=== PATIENT | male | born 2000 | race American Indian/Alaskan Native ===

== ENCOUNTER 2024-04-30 16:07 | Emergency (ER) | payer SELFPAY ==
--- NOTE | 2024-04-30 17:33 | RAD REPORT ---
EXAM:Extremity Venous Uni Ltd HISTORY: Leg pain TECHNIQUE: Sonographic evaluation right lower extremity performed.Grayscale, color and spectral nicolás sis performed on all vessels COMPARISON: None. FINDINGS: Right common femoral, superficial femoral, greater saphenous, popliteal and posterior tibial veins ar e compressible and demonstrate augmentation. Doppler demonstrates good flow. IMPRESSION: No evidence of deep venous thrombosis involving the right lower extremity.
[2024-04-30 17:38] LABS: Absolute Basophils 0.1 K/uL (0-0.5); Absolute Eosinophils 0.3 K/uL (0-0.5); Absolute Lymphocytes (CBC) 2.7 K/uL (0.7-4.9); Absolute Monocytes 1.1 K/uL (0.1-1.3); Absolute Neutrophil 7.9 K/uL (1.8-8.0); Basophils % 0.7 % (0-1.3); Eosinophils % 2.5 % (0-4.4); Hematocrit 37.2 % (39.6-49.0); Hemoglobin 12.3 g/dL (13.6-17.9); Lymphocytes % 22.1 % (15.3-44.8); MCH 29.4 pg (27.0-35.0); MCHC 32.9 g/dL (32.0-36.0); MCV 89.4 fL (80-100); MPV 7.9 fL (7.6-11.3); Monocytes % 9.4 % (3.3-12.3); Neutrophils % 65.3 % (41.7-73.7); Platelets 382 thou/uL (152-406); RBC Red Blood Cell Count 4.16 M/uL (4.33-5.43); Red Cell Distribution Width 14.2 % (12.1-15.2)
[2024-04-30 17:42] LABS: PT Prothrombin Time 12.8 SECONDS (9.4-12.5); PTT, Activated Partial Thromb 37.2 SECONDS (24.3-36.9); Protime INR 1.15
[2024-04-30 17:55] LABS: Albumin/Globulin Ratio 0.6 (1.1-1.8); Anion Gap 9.6 mEq/L (5.0-15.0); Bilirubin Total 0.5 mg/dL (0.2-1.0); Globulin 5.3 g/dL (2.3-3.5); Potassium 3.6 mEq/L (3.5-5.1); Protein, Total 8.3 g/dL (6.4-8.2)
[2024-04-30] MEDS ORDERED: NA CHLORIDE 0.9% 1,000 ML ONE (18:16)
[2024-04-30] MEDS ORDERED: FUROSEMIDE 40 MG/4 ML VIAL ONE (18:16)
[2024-04-30] MEDS ORDERED: CLINDAMYCIN 900MG/D5W 900 MG/50 ML IVPB IV ONE (18:16)
--- NOTE | 2024-04-30 18:48 | EDPHYS ---
Physician Documentation [facility] Name: Korey Borrego Age: 23 yrs Sex: Male : 2000 Arrival Date: 04/30/2024 Time: 16:07 Bed 13 Private MD: ED Physician Ameya Holley HPI: 04/30 19:31 This 23 yrs old Male presents to ER via Ambulatory with complaints of sb4 leg swelling. 19:31 The patient presents with cellulitis of the right desir. Description: erythematous, sb4 swollen, warm. Possible cause(s): spider bite. Associated signs and symptoms: Pertinent negatives: discharge, drainage, fever. thinks he was bitten by a spider 3 weeks ago. on the right lower leg. desir has slowly become more red and swollen. was prescribed antibiotics that he just started this morning. his boss sent him here for further eval. Historical: - Allergies: 16:44 No Known Allergies; ll1 - PMHx: 16:44 None; ll1 - PSHx: 16:44 None; ll1 - Immunization history:: Adult Immunizations up to date. - Infectious Disease History:: Denies. - Social history:: Smoking status: Patient denies any tobacco usage or history of. ROS: 19:31 Constitutional: Negative for fever, chills, and weight loss, sb4 19:31 Skin: Positive for cellulitis, erythema, swelling, of the right desir, 19:31 All other systems are negative, Exam: 19:33 Head/Face: Normocephalic, atraumatic. Eyes: Extra-ocular motions intact. Periorbital sb4 areas with no swelling, redness, or edema. ENT: Mucous membranes moist. Cardiovascular: Regular rate and rhythm with a normal S1 and S2. Respiratory: No increased work of breathing, no retractions or nasal flaring. Abdomen/GI: Soft, non-tender, no distension. 19:33 Constitutional: The patient appears in no acute distress, alert, awake, obese, 19:33 Cardiovascular: Edema: 3+ edema to level of right midcalf and right ankle, 19:33 Skin: cellulitis, that is moderate, on the right desir, Vital Signs: 16:41 BP 151 / 92; Pulse 100; Resp 16; Temp 97.5; Pulse Ox 100% ; Weight 158.3 kg; Height 5 ll1 ft. 9 in. ; Pain 10/10; 17:45 BP 125 / 92; Pulse 92; Resp 16; Pulse Ox 98% ; cm10 18:00 BP 125 / 62; Pulse 90; Resp 19; Pulse Ox 99% ; cm10 16:41 Body Mass Index 51.54 (158.30 kg, 175.26 cm) ll1 16:41 Pain Scale: Adult ll1 MDM: 17:12 Medical Screening Exam initiated sb4 19:33 Data reviewed: vital signs, nurses notes, lab test result(s), radiologic studies, and sb4 as a result, I will discharge patient. Counseling: I had a detailed discussion with the patient and/or guardian regarding the historical points, exam findings, and any diagnostic results supporting the discharge/admit diagnosis, lab results, radiology results, the need for outpatient follow up, for definitive care, to return to the emergency department if symptoms worsen or persist or if there are any questions or concerns that arise at home. 04/30 16:49 Order name: Blood Culture Adult (2) sb4 04/30 16:49 Order name: CBC with Diff; Complete Time: 17:46 sb4 04/30 16:49 Order name: CMP; Complete Time: 18:01 sb4 04/30 16:49 Order name: Lactate w/ 2H reflex if indic.; Complete Time: 18:01 sb4 04/30 16:49 Order name: Protime (+inr); Complete Time: 17:42 sb4 04/30 16:49 Order name: Ptt, Activated; Complete Time: 17:42 sb4 04/30 16:49 Order name: Extremity Venous Uni Ltd US; Complete Time: 17:33 sb4 04/30 16:49 Order name: Accucheck; Complete Time: 17:39 sb4 04/30 16:49 Order name: Cardiac monitoring; Complete Time: 17:39 sb4 04/30 16:49 Order name: IV Saline Lock - Large Bore; Complete Time: 17:31 sb4 04/30 16:49 Order name: Labs collected and sent; Complete Time: 17:31 sb4 04/30 16:49 Order name: O2 Per Protocol; Complete Time: 17:39 sb4 04/30 16:49 Order name: O2 Sat Monitoring; Complete Time: 17:39 sb4 04/30 16:49 Order name: Vital Signs; Complete Time: 17:39 sb4 Administered Medications: 18:25 Drug: NS 0.9% IV 1000 ml IV at 1 bolus Per protocol; to be given as a bolus over 60 cm10 minutes Route: IV; Rate: 1 bolus; Site: left antecubital; 19:04 Follow up: Response: No adverse reaction; IV Status: Completed infusion; IV Intake: cm10 1000ml 18:25 Drug: Furosemide IVP 40 mg IVP once; give over 2 minutes Route: IVP; Site: left cm10 antecubital; 19:04 Follow up: Response: No adverse reaction cm10 18:25 Drug: Clindamycin IVPB 900 mg IVPB once over 30 mins; (mix in 50 mL) Route: IVPB; cm10 Infused Over: 30 mins; Site: left antecubital; 19:04 Follow up: Response: No adverse reaction; IV Status: Completed infusion; IV Intake: [id number] Disposition Summary: 04/30/24 18:48 Discharge Ordered Notes: Location: Home sb4 Problem: an ongoing problem sb4 Symptoms: have improved sb4 Condition: Stable sb4 Diagnosis - Cellulitis of right lower limb sb4 Followup: sb4 - With: Emergency Department - When: As needed - Reason: Fever > 102 F, Worsening of condition Discharge Instructions: - Discharge Summary Sheet sb4 - Cellulitis, Adult sb4 Forms: - Antibiotic Education sb4 - Patient Portal Instructions sb4 - Leadership Thank You Letter sb4 Prescriptions: - Cephalexin 500 mg Oral Capsule - take 1 capsule ORAL route every 12 hours for 10 days; 20 capsule; Refills: 0, sb4 Product Selection Permitted - Bactrim DS 800-160 mg Oral Tablet - take 1 tablet ORAL route every 12 hours for 10 days; 20 tablet; Refills: 0, sb4 Product Selection Permitted Signatures: Dispatcher [employer] Melissa Turner RN RN ll1 Naomi Basilio PA-C PASean sb4 Ronel Darden RN RN cm10 Corrections: (The following items were deleted from the chart) 16:50 16:50 BLOOD CULTURE*+BA.LAB.BRZ ordered. EDMS EDMS 16:50 16:50 CBC+H.LAB.BRZ ordered. EDMS EDMS 16:50 16:50 COMPREHENSIVE METABOLIC PANEL+C.LAB.BRZ ordered. EDMS EDMS 16:50 16:50 LACTATE+C.LAB.BRZ ordered. EDMS EDMS 16:50 16:50 PROTIME (+INR)+COAG.LAB.BRZ ordered. EDMS EDMS 16:50 16:50 PTT, ACTIVATED+COAG.LAB.BRZ ordered. EDMS EDMS
--- NOTE | 2024-04-30 18:48 | ER ---
Nurse's Notes [facility] Name: Korey Borrego Age: 23 yrs Sex: Male : 2000 Arrival Date: 04/30/2024 Time: 16:07 Bed 13 Private MD: Diagnosis: Cellulitis of right lower limb Presentation: 04/30 16:41 Chief complaint: Patient states: R lower leg pain for 3 weeks (possible spider bite). ll1 States it started to get red and swollen since Tuesday. RLE is red and tender. Coronavirus screen: Client denies travel out of the [place] in the last 14 days. At this time, the client does not indicate any symptoms associated with coronavirus-19. Ebola Screen: Patient denies travel to an Ebola-affected area in the 21 days before illness onset. Initial Sepsis Screen: Does the patient meet any 2 criteria? No. Patient's initial sepsis screen is negative. Does the patient have a suspected source of infection? No. Patient's initial sepsis screen is negative. Risk Assessment: Do you want to hurt yourself or someone else? Patient reports no desire to harm self or others. Onset of symptoms was April 28, 2024. 16:41 Method Of Arrival: Ambulatory ll1 16:41 Acuity: ESTRELLA 3 ll1 Triage Assessment: 16:44 General: Appears uncomfortable, Behavior is calm, cooperative, appropriate for age. ll1 Pain: Complains of pain in right leg. Derm: Reports redness, pain, swelling RLE. Musculoskeletal: Reports pain in right leg. Historical: - Allergies: 16:44 No Known Allergies; ll1 - PMHx: 16:44 None; ll1 - PSHx: 16:44 None; ll1 - Immunization history:: Adult Immunizations up to date. - Infectious Disease History:: Denies. - Social history:: Smoking status: Patient denies any tobacco usage or history of. Screenin:[facility] ED Fall Risk Assessment (Adult) History of falling in the last 3 months, cm10 including since admission No falls in past 3 months (0 pts) Confusion or Disorientation No (0 pts) Intoxicated or Sedated No (0 pts) Impaired Gait No (0 pts) Mobility Assist Device Used Yes (1 pt) Altered Elimination No (0 pt) Score/Fall Risk Level 0 - 2 = Low Risk Oriented to surroundings, Maintained a safe environment, Hourly rounding (assess needs \T\ fall precautionary measures) done. Abuse screen: Denies threats or abuse. Denies injuries from another. Nutritional screening: No deficits noted. Tuberculosis screening: No symptoms or risk factors identified. Assessment: 17:59 General: Appears in no apparent distress. comfortable, Behavior is calm, cooperative. cm10 Neuro: No deficits noted. Level of Consciousness is awake, alert, obeys commands, Oriented to person, place, time, situation, Appropriate for age. Respiratory: No deficits noted. Airway is patent Respiratory effort is even, unlabored, Respiratory pattern is regular, symmetrical. Derm: Redness and swelling noted to right lower leg. 18:56 Reassessment: Patient appears in no apparent distress at this time. No changes from cm10 previously documented assessment. Patient and/or family updated on plan of care and expected duration. Pain level reassessed. Patient is alert, oriented x 3, equal unlabored respirations, skin warm/dry/pink. Pain: Complains of pain in Right leg. Vital Signs: 16:41 BP 151 / 92; Pulse 100; Resp 16; Temp 97.5; Pulse Ox 100% ; Weight 158.3 kg; Height 5 ll1 ft. 9 in. ; Pain 10/10; 17:45 BP 125 / 92; Pulse 92; Resp 16; Pulse Ox 98% ; cm10 18:00 BP 125 / 62; Pulse 90; Resp 19; Pulse Ox 99% ; cm10 16:41 Body Mass Index 51.54 (158.30 kg, 175.26 cm) ll1 16:41 Pain Scale: Adult ll1 ED Course: 16:13 Patient arrived in ED. ra3 16:21 Naomi Basilio PA-C is PHCP. sb4 16:21 Ameya Holley MD is Attending Physician. sb4 16:24 Arm band placed on. ll1 16:44 Triage completed. ll1 16:49 Ronel Darden, NASREEN is Primary Nurse. cm10 17:23 Extremity Venous Uni Ltd US In Process Unspecified. EDMS 17:23 Initial lab(s) drawn, by me, sent to lab. First set of blood cultures drawn Second set cc6 of blood cultures drawn by me. Inserted saline lock: 20 gauge in left antecubital area, using aseptic technique. Blood collected. Flushed with 10 mL NS. 17:32 Blood Culture Adult (2) Sent. cc6 17:32 CBC with Diff Sent. cc6 17:32 CMP Sent. cc6 17:32 Lactate w/ 2H reflex if indic. Sent. cc6 17:32 Protime (+inr) Sent. cc6 17:32 Ptt, Activated Sent. cc6 18:00 Patient has correct armband on for positive identification. Bed in low position. Call cm10 light in reach. Side rails up X 1. Provided Education on: ER process and procedures,. Client placed on continuous cardiac and pulse oximetry monitoring. NIBP monitoring applied. secured entrance monitor on. 19:03 No provider procedures requiring assistance completed. IV discontinued, intact, cm10 bleeding controlled, No redness/swelling at site. Pressure dressing applied. Administered Medications: 18:25 Drug: NS 0.9% IV 1000 ml IV at 1 bolus Per protocol; to be given as a bolus over 60 cm10 minutes Route: IV; Rate: 1 bolus; Site: left antecubital; 19:04 Follow up: Response: No adverse reaction; IV Status: Completed infusion; IV Intake: cm10 1000ml 18:25 Drug: Furosemide IVP 40 mg IVP once; give over 2 minutes Route: IVP; Site: left cm10 antecubital; 19:04 Follow up: Response: No adverse reaction cm10 18:25 Drug: Clindamycin IVPB 900 mg IVPB once over 30 mins; (mix in 50 mL) Route: IVPB; cm10 Infused Over: 30 mins; Site: left antecubital; 19:04 Follow up: Response: No adverse reaction; IV Status: Completed infusion; IV Intake: [id number] Medication: 17:59 VIS not applicable for this client. cm10 Intake: 19:04 IV: 1000ml; Total: 1000ml. cm10 19:04 IV: 50ml; Total: 1050ml. cm10 Outcome: 18:48 Discharge ordered by . sb4 19:03 Discharged to home ambulatory, cm10 19:03 Condition: good 19:03 Discharge instructions given to patient, Instructed on discharge instructions, follow up and referral plans. medication usage, Demonstrated understanding of instructions, follow-up care, medications, Prescriptions given X 2, 19:04 Patient left the ED. cm10 Signatures: Dispatcher [facility] Melissa Turner RN RN ll1 Naomi Basilio PA-C PASean sb4 Ronel Darden RN RN cm10 Ava Palomares ra3 Mimi Hancock cc6 Corrections: (The following items were deleted from the chart) 16:44 16:41 Pulse 100bpm; Resp 16bpm; Pulse Ox 100%; Temp 97.5F; 158.3 kg; Height 5 ft. 9 ll1 in.; BMI: 51.5; Pain 04/19, Adult; ll1 18:55 18:00 BP 125 / 92; Pulse 92bpm; Resp 19bpm; Pulse Ox 99%; cm10 cm10 18:56 18:00 BP 125 / 62; Pulse 92bpm; Resp 19bpm; Pulse Ox 99%; cm10 cm10
[2024-04-30 23:51] VITALS: TEMP 97.5
[2024-04-30 23:58] VITALS: BP 125/62; O2SAT 99
== END 2024-04-30 19:04 | disposition home or self-care (01) ==
LOC: ER 16:07
DX: L03.115 Cellulitis of right lower limb (principal)
CPT/HCPCS: 36415; 80053; 83605; 85025; 85610; 85730; 87040; 93971; 96365; 96375; 99285; J1940; J7030